=== PATIENT | female | born 1975 | race Caucasian/White ===

== ENCOUNTER 2016-10-22 12:23 | Emergency (ER) | payer BC ==
[2016-10-22 12:33] VITALS: TEMP 97.8; BMI 20.7
[2016-10-22 12:52] LABS: AUTOMATED BASOPHIL 0.4 % (0-2); AUTOMATED EOSINOPHIL 0.6 % (0-5); AUTOMATED LYMPH 35.7 % (17-44); AUTOMATED MONOCYTE 7.4 % (3-10); AUTOMATED NEUTROPHIL 55.9 % (45-76); MPV 8.5 fL (7.4-10.4)
[2016-10-22 12:55] LABS: LEUKOCYTES/URINE NEG (NEGATIVE); NITRITE/URINE NEG (NEGATIVE); RBC/URINE 0-2 (0-5); URINE OCCULT BLOOD 1+ (NEG/TRACE); WBC/URINE 0-2 (0-5)
[2016-10-22 13:06] LABS: BLOOD UREA NITROGEN 10 MG/DL (7-17); CALCULATED OSMOLALITY 266 MOs/Kg (270-290); CHLORIDE 103 mEq/L (98-107); GLUCOSE 86 MG/DL (70-99); SODIUM LEVEL 139 mEq/L (137-146); TOTAL PROTEIN 7.8 G/DL (6.3-8.2)
--- NOTE | 2016-10-22 16:13 | EDPRACDOC ---
- General Information Chief Complaint: Abdominal Pain Stated Complaint: LT ABD & SIDE PAIN NAUSEATED Time Seen by Provider: 10/22/16 16:07 Mode Of Arrival: Car Home Medications: Home Medications No Home Medications 10/22/16 Allergies/Adverse Reactions: Allergies Allergy/AdvReac Type Severity Reaction Status Date / Time Penicillins Allergy Hives* Verified 10/22/16 12:37 - History of Present Illness Onset: SEVERAL WKS HPI: 2 WEEKS, LUQ PAIN, INTERMITTENT, PAIN 6/10. SOME NAUSEA, BUT NOT TODAY. PAIN NOT WORSE WITH FOOD OR DRINK. NO MELENA OR BLOOD IN STOOL. NO CP OR SOB. DOES NOT TAKE GOODY'S, IBUPROFEN OR ASPIRIN. PAIN WAS WORSE YESTERDAY AND TODAY. DOES NOT DRINK ALCOHOL. NO DYSURIA. LAST MENSES 2 SUNDAYS AGO, H /O UTERINE FIBROIDS. 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 Last Menstrual Period: 2 WKS AGO ED Past Medical History - Patient Medical History Systemic History: Denies: Cancer - Social Medical History Smoking Status: Never smoker EDM Review of Systems - Review of Systems ROS Negative Except as Marked: Yes All systems reviewed and were negative except as marked Mouth: No Symptoms Reported Respiratory: No Symptoms Reported Cardiovascular: No Symptoms Reported Gastrointestinal: Nausea (WHEN PAIN IS SEVERE.) - Physical Exam Constitutional: Alert (Awake), No apparent distress Oriented to: Time, Person, Place Last recorded Vital Signs: Last Vital Signs Temp 97.8 F 10/22/16 12:30 Pulse 65 10/22/16 16:37 Resp 18 10/22/16 16:37 BP 122/58 L 10/22/16 16:37 Pulse Ox 98 10/22/16 16:37 Oxygen Pulse Oxygen Saturation 98 O2 Device Room Air Oxygen Flow Rate Fraction of Inspired Oxygen ( FIO2) - HEENT Head: Normal ( normocephalic) Eye Exam: Normal (PERRL, EOMI, Sclera white) Oropharynx: Normal (Pharynx:Moist without exudate,Gums-no swelling) Nose: No Symptoms Reported (septum midline) Neck: Normal (FROM, trachea at midline) - Respiratory/Cardiovascular Respiratory: Normal - CTA (BBS clear to auscultation without adventitious sounds ) Cardiovascular: Normal (RRR without murmur, gallop or rub) - GI Auscultation: Normal (NABS) Palpation: Normal (Soft,No rebound or guarding, non distended) Tenderness: Non tender Gomez's Sign: Negative - Musculoskeletal Back: Normal (Non-Tender) Extremities: Normal (Normal tone, Pulses 2+ No cyanosis or edema, FROM) Musculoskeletal Comment: LEFT ANTERIOR INFERIOR RIB POINT TTP. NO ABDOMINAL TTP. - Integumentary Skin: Normal, Warm, Dry Lymphatics: Normal (no adenopathy) - Neurologic Memory Impaired: Normal Motor Function: Normal (Normal tone, Pulses 2+ No cyanosis or edema, FROM) Cranial Nerve: Normal (CN II-X11 intact sensation, strength 5/5) Cerebellar: Normal Mood Description: Normal Perception: Normal - Results 10/22/16 12:37 10/22/16 12:37 WBC 8.4 xk/uL (3.8-10.8) 10/22/16 12:37 RBC 4.93 xM/uL (4.20-5.40) 10/22/16 12:37 Hgb 15.4 g/dL (12.0-16.0) 10/22/16 12:37 Hct 44.3 % (36-47) 10/22/16 12:37 MCV 90 fL (81-99) 10/22/16 12:37 MCH 31.2 pg (27-32) 10/22/16 12:37 MCHC 34.7 g/dl (33-36) 10/22/16 12:37 RDW 13.2 % (11.5-14.5) 10/22/16 12:37 Plt Count 246 xk/uL (130-400) 10/22/16 12:37 MPV 8.5 fL (7.4-10.4) 10/22/16 12:37 Neut % (Auto) 55.9 % (45-76) 10/22/16 12:37 Lymph % (Auto) 35.7 % (17-44) 10/22/16 12:37 Leon % (Auto) 7.4 % (3-10) 10/22/16 12:37 Eos % (Auto) 0.6 % (0-5) 10/22/16 12:37 Baso % (Auto) 0.4 % (0-2) 10/22/16 12:37 Absolute Neuts (auto) 4.62 xk/uL (1.7-8.2) 10/22/16 12:37 Absolute Lymphs (auto) 2.94 xk/uL (0.65-4.75) 10/22/16 12:37 Sodium 139 mEq/L (137-146) 10/22/16 12:37 Potassium 3.9 mEq/L (3.5-5.1) 10/22/16 12:37 Chloride 103 mEq/L (98-107) 10/22/16 12:37 Carbon Dioxide 25 mMOL/L (22-33) 10/22/16 12:37 Anion Gap 15 mEq/L (8-16) 10/22/16 12:37 BUN 10 MG/DL (7-17) 10/22/16 12:37 Creatinine 0.80 MG/DL (0.52-1.04) 10/22/16 12:37 Estimated GFR (MDRD) > 60 mL/min (>=60) 10/22/16 12:37 Glucose 86 MG/DL (70-99) 10/22/16 12:37 Calculated Osmolality 266 MOs/Kg (270-290) L 10/22/16 12:37 Calcium 9.0 MG/DL (8.4-10.2) 10/22/16 12:37 Total Bilirubin 0.8 MG/DL (0.2-1.3) 10/22/16 12:37 AST 19 IU/L (14-36) 10/22/16 12:37 ALT 22 IU/L (9-52) 10/22/16 12:37 Alkaline Phosphatase 82 IU/L (38-126) 10/22/16 12:37 Total Protein 7.8 G/DL (6.3-8.2) 10/22/16 12:37 Albumin 4.2 G/DL (3.5-5.0) 10/22/16 12:37 Urine Color Pale yellow 10/22/16 12:34 Urine Clarity Clear 10/22/16 12:34 Urine pH 7.0 (5.0-8.0) 10/22/16 12:34 Ur Specific [place] 1.005 (1.003-1.035) 10/22/16 12:34 Urine Protein Neg (NEG/TRACE) 10/22/16 12:34 Urine Glucose (UA) Neg (NEGATIVE) 10/22/16 12:34 Urine Ketones Neg (NEGATIVE) 10/22/16 12:34 Urine Occult Blood 1+ (NEG/TRACE) H 10/22/16 12:34 Urine Nitrite Neg (NEGATIVE) 10/22/16 12:34 Urine Bilirubin Neg (NEGATIVE) 10/22/16 12:34 Urine Urobilinogen <2.0 MG/DL (0-1) 10/22/16 12:34 Ur Leukocyte Esterase Neg (NEGATIVE) 10/22/16 12:34 Urine RBC 0-2 (0-5) 10/22/16 12:34 Urine WBC 0-2 (0-5) 10/22/16 12:34 Ur Epithelial Cells 1+ 10/22/16 12:34 Urine Bacteria Few (NEG/FEW) 10/22/16 12:34 Urine Test Neg (NEGATIVE) 10/22/16 12:34 Lab Results 10/22/16 10/22/16 10/22/16 12:37 12:37 12:34 WBC 8.4 RBC 4.93 Hgb 15.4 Hct 44.3 MCV 90 MCH 31.2 MCHC 34.7 RDW 13.2 Plt Count 246 MPV 8.5 Neut % (Auto) 55.9 Lymph % (Auto) 35.7 Leon % (Auto) 7.4 Eos % (Auto) 0.6 Baso % (Auto) 0.4 Absolute Neuts (auto) 4.62 Absolute Lymphs (auto) 2.94 Sodium 139 Potassium 3.9 Chloride 103 Carbon Dioxide 25 Anion Gap 15 BUN 10 Creatinine 0.80 Estimated GFR (MDRD) > 60 Glucose 86 Calculated Osmolality 266 L Calcium 9.0 Total Bilirubin 0.8 AST 19 ALT 22 Alkaline Phosphatase 82 Total Protein 7.8 Albumin 4.2 Urine Color Pale yellow Urine Clarity Clear Urine pH 7.0 Ur Specific [place] 1.005 Urine Protein Neg Urine Glucose (UA) Neg Urine Ketones Neg Urine Occult Blood 1+ H Urine Nitrite Neg Urine Bilirubin Neg Urine Urobilinogen <2.0 Ur Leukocyte Esterase Neg Urine RBC 0-2 Urine WBC 0-2 Ur Epithelial Cells 1+ Urine Bacteria Few Urine Test 10/22/16 12:34 WBC RBC Hgb Hct MCV MCH MCHC RDW Plt Count MPV Neut % (Auto) Lymph % (Auto) Leon % (Auto) Eos % (Auto) Baso % (Auto) Absolute Neuts (auto) Absolute Lymphs (auto) Sodium Potassium Chloride Carbon Dioxide Anion Gap BUN Creatinine Estimated GFR (MDRD) Glucose Calculated Osmolality Calcium Total Bilirubin AST ALT Alkaline Phosphatase Total Protein Albumin Urine Color Urine Clarity Urine pH Ur Specific [place] Urine Protein Urine Glucose (UA) Urine Ketones Urine Occult Blood Urine Nitrite Urine Bilirubin Urine Urobilinogen Ur Leukocyte Esterase Urine RBC Urine WBC Ur Epithelial Cells Urine Bacteria Urine Test Neg Decision Time to Discharge: 16:56 - Departure Yes I personally saw and evaluated the patient. Disposition: Home Condition: Stable Final Diagnosis: Chest wall pain Instructions: Chest Wall Pain Education/Counseling Given To: Patient Education/Counseling Given Regarding: Diagnosis Referrals: None,No Provider [Primary Care Provider] - One Week Additional Instructions: MOTRIN 600 MG THREE TIMES DAILY FOR UP TO ONE WEEK.
[2016-10-22 16:37] VITALS: BP 122/58; PULSE 65
--- NOTE | 2016-10-22 16:41 | DIRPT ---
CLINICAL DATA: Left-sided chest pain for 2 weeks, no known injury, initial encounter EXAM: LEFT RIBS AND CHEST - 3+ VIEW COMPARISON: None. FINDINGS: No fracture or other bone lesions are seen involving the ribs. There is no evidence of pneumothorax or pleural effusion. Both lungs are clear. Heart size and mediastinal contours are within normal limits. IMPRESSION: No acute abnormality noted. Electronically Signed By: Emmanuel Beltran M.D. On: 10/22/2016 16:39
== END 2016-10-22 17:01 | disposition home or self-care (01) ==
LOC: ED 12:23
DX: R07.89 Other chest pain (principal)
CPT/HCPCS: 36415; 80053; 81001; 81025; 85025; 99283